=== PATIENT | male | born 1960 | race Asian ===

== ENCOUNTER 2017-01-09 10:11 | Day surgery (SDC) | payer OTHER ==
[2017-01-05 09:39] LABS: BASOPHILS # (AUTO) 0.04 K/uL (0.00-0.20); BASOPHILS % (AUTO) 0.6 % (0.0-2.0); EOSINOPHILS # (AUTO) 0.25 K/uL (0.00-0.70); EOSINOPHILS % (AUTO) 3.84 % (1.0-6.0); HEMATOCRIT 35.9 % (41-53); HEMOGLOBIN 11.5 g/dL (13.5-17.5); LYMPHOCYTES % (AUTO) 30.3 % (22.0-44.0); MEAN CORPUSCULAR HEMOGLOBIN 28.1 pg (26.0-34.0); MEAN CORPUSCULAR HGB CONC 31.9 G/dL (31.0-37.0); MEAN CORPUSCULAR VOLUME 88 fL (80-100); MONOCYTES # (AUTO) 0.4 K/uL (0.1-1.0); MONOCYTES % (AUTO) 5.5 % (2.0-9.0); NEUTROPHILS # (AUTO) 3.9 K/uL (1.8-7.7); NEUTROPHILS % (AUTO) 59.8 % (40.0-70.0); PLATELET COUNT (AUTO) 280 K/uL (150-450); RED BLOOD CELL COUNT(AUTO) 4.08 MIL/uL (4.50-5.90); RED CELL DISTRIBUTION WIDTH 14.8 % (11.5-14.5); WHITE BLOOD COUNT (AUTO) 6.4 K/uL (4.5-11.0)
[2017-01-05 09:54] LABS: CALCIUM, TOTAL 9.4 mg/dL (8.8-10.5); CREATININE 1.28 mg/dL (0.60-1.30); POTASSIUM 3.7 mmol/L (3.5-5.1)
[~2017-01-09] VITALS: Ht 172.7 cm; Wt 91.8 kg
[~2017-01-09 10:11] MED LIST: CefoTEtan DISOD 1 GM/DEXTROSE 50 ML IV ONE; EPHEDrine SULFATE 50 MG/ML VIAL IM ONE; FERR-89 PO; FentaNYL CITRATE-PF 100 MCG/2 ML VIAL IVP ONE; GEMF600T3 PO; LEVO150 PO; LIDOCAINE HCL/PF 2% 5 ML VIAL IM ONE; LOSA50TA37 PO; METF500T7 PO; METO-323 PO; MIDAZOLAM HCL 2 MG/2 ML VIAL IVP ONE; PROPOFOL 1% 20 ML VIAL IVP ONE; SODIUM PHOS/SODIUM BIPHOS 133 ML ENEMA PR ONE; SUCCINYLCHOLINE CHLORIDE 20 MG/ML 10 ML VIAL IVP ONE
[2017-01-09] MEDS ORDERED: RINGERS SOLUTION,LACTATED 1,000 ML IV ONE ×2 (10:23→10:30)
[2017-01-09 11:06] LABS: GLUCOSE,POINT OF CARE 109 MG/DL (70-110)
[2017-01-09] MEDS ORDERED: LIDOCAINE HCL 2%/EPI 1:200,000/PF 10 ML VIAL ONE (11:25)
[2017-01-09] MEDS ORDERED: BUPIVACAINE HCL/PF 0.5% 30 ML VIAL ONE (11:25)
[2017-01-09] MEDS ORDERED: GELATIN SPONGE,ABSORBABLE 100 MM TP ONE ×2 (11:29→13:09)
[2017-01-09] MEDS ORDERED: MEPERIDINE-PF 25 MG/ML SYRINGE IVP PRN (13:30)
[2017-01-09] MEDS ORDERED: HYDROmorphone 2 MG/ML SYRINGE IVP PRN (13:30)
[2017-01-09] MEDS ORDERED: HYDROCODONE/ACETAMINOPHEN 5-325 MG TABLET PO PRN (13:30)
[2017-01-09] MEDS ORDERED: ACETAMINOPHEN 500 MG TABLET PO PRN (13:30)
[2017-01-09] MEDS: FentaNYL CITRATE-PF 100 MCG/2 ML VIAL IVP PRN ×2 (14:13→14:20)
[2017-01-09] MEDS ORDERED: FentaNYL CITRATE-PF 100 MCG/2 ML VIAL ONE (14:14)
[2017-01-09] MEDS ORDERED: OXYGEN THERAPY IH SCH (20:00)
== END 2017-01-09 15:35 | disposition home or self-care (01) ==
LOC: SURGERY 10:11
PROVIDERS: ATTEND Surgery
DX: K64.8 Other hemorrhoids (principal); I10 Essential (primary) hypertension; E11.9 Type 2 diabetes mellitus without complications; F17.210 Nicotine dependence, cigarettes, uncomplicated; Z72.89 Other problems related to lifestyle
CPT/HCPCS: 36415; 46260; 80048; 82962; 85025; 93005; J0330; J2250; J2704; J3010; J3490 ×5; J7120; 88304

== ENCOUNTER 2023-02-24 15:16 | Emergency (ER) | payer OTHER ==
[~2023-02-24] VITALS: Ht 172.7 cm; Wt 90.9 kg
[~2023-02-24 15:16] MED LIST changes: -CefoTEtan DISOD 1 GM/DEXTROSE 50 ML IV ONE; -EPHEDrine SULFATE 50 MG/ML VIAL IM ONE; -FERR-89 PO; +FERR325T27 PO; -FentaNYL CITRATE-PF 100 MCG/2 ML VIAL IVP ONE; +GEMF-77 PO; -GEMF600T3 PO; -LIDOCAINE HCL/PF 2% 5 ML VIAL IM ONE; +LOSA-382 PO; -LOSA50TA37 PO; +METF-81 PO; -METF500T7 PO; -METO-323 PO; +METO25XL PO; -MIDAZOLAM HCL 2 MG/2 ML VIAL IVP ONE; -PROPOFOL 1% 20 ML VIAL IVP ONE; -SODIUM PHOS/SODIUM BIPHOS 133 ML ENEMA PR ONE; -SUCCINYLCHOLINE CHLORIDE 20 MG/ML 10 ML VIAL IVP ONE
[2023-02-24 15:32] VITALS: TEMP 98.9
[2023-02-24] MEDS ORDERED: ATOR40TA71 PO (17:26)
[2023-02-24] MEDS ORDERED: SITA100 PO (17:26)
[2023-02-24] MEDS ORDERED: METF-446 PO (17:26)
[2023-02-24] MEDS ORDERED: LEVO175T9 PO (17:26)
[2023-02-24] MEDS ORDERED: PIOG15TA66 PO (17:26)
[2023-02-24] MEDS ORDERED: METO25 PO (17:26)
[2023-02-24] MEDS ORDERED: GABA600T10 PO (17:26)
[2023-02-24] MEDS ORDERED: GLIP5TAB11 PO (17:26)
[2023-02-24] MEDS ORDERED: ASPI-1444 PO (17:26)
[2023-02-24] MEDS ORDERED: LOSA1TAB40 PO (17:26)
[2023-02-24] MEDS ORDERED: NEOMYCIN/POLYMYXIN B/HYDROCORT 10 ML OTIC SUSPENSION AU ONE (17:30)
[2023-02-24 18:00] VITALS: BP 154/71; PULSE 87; RESP 17
== END 2023-02-24 18:27 | disposition home or self-care (01) ==
LOC: EMS 15:20
DX: H60.93 Unspecified otitis externa, bilateral (principal); I10 Essential (primary) hypertension; F17.210 Nicotine dependence, cigarettes, uncomplicated
CPT/HCPCS: 99283